=== PATIENT | female | born 1950 | race Caucasian/White ===

== ENCOUNTER 2018-05-09 12:13 | Emergency (ER) | payer MEDICARE ==
[~2018-05-09] VITALS: Ht 152.4 cm; Wt 82.0 kg
--- NOTE | 2018-05-09 12:40 | NUR ---
PT TO ROOM FROM [facility] AT THIS TIME.
--- NOTE | 2018-05-09 12:54 | NUR ---
ON MONITOR HR NOW 100 AFTER BEING 148. P WAVES ARE VISIBLE. EKG BEING REPEATED.
[2018-05-09] MEDS ORDERED: LISINOPRIL PO (12:55)
[2018-05-09] MEDS ORDERED: HYDROCHLOROTHIAZIDE PO (12:55)
[2018-05-09 13:30] LABS: BASOPHILS # (AUTO) 0.02 x10^3/uL (0-0.1); BASOPHILS % (AUTO) 0 % (0-1); EOSINOPHILS # (AUTO) 0.01 x10^3/uL (0-0.4); EOSINOPHILS % (AUTO) 0 % (1-7); LYMPHOCYTES # (AUTO) 0.63 x10^3/uL (1-3.4); LYMPHOCYTES % (AUTO) 10 % (22-44); MD NO; MEAN CORPUSCULAR HEMOGLOBIN 32.7 pg (27.0-34.8); MEAN CORPUSCULAR HGB CONC 34.3 g/dL (32.4-35.8); MEAN CORPUSCULAR VOLUME 95.3 fL (80-100); MEAN PLATELET VOLUME 8.2 fL (7.4-10.4); MONOCYTES # (AUTO) 0.08 x10^3/uL (0.2-0.8); MONOCYTES % (AUTO) 1 % (2-9); NEUTROPHILS # (AUTO) 5.61 x10^3/uL (1.8-6.8); NEUTROPHILS % (AUTO) 88 % (42-75); PLATELET COUNT 194 x10^3/uL (130-400); RED BLOOD COUNT 4.04 x10^6/uL (3.82-5.3); RED CELL DISTRIBUTION WIDTH 13.9 % (9.6-15.2)
[2018-05-09] MEDS ORDERED: SODIUM CHLORIDE FLUSH 10ML SYR IVF ONE (13:30)
[2018-05-09 13:42] LABS: ALANINE AMINOTRANSFERASE 22 U/L (12-78); ALBUMIN 3.6 g/dL (3.4-5.0); ANION GAP 6 mmol/L (5-15); CALCIUM 8.5 mg/dL (8.5-10.1); CHLORIDE 114 mmol/L (98-107)
--- NOTE | 2018-05-09 13:42 | NUR ---
PURE WICK APPLIED PER PT PREFERENCE AFTER DISCUSSING OPTIONS. PT STILL IN SINUS RHYTHM.
[2018-05-09 13:45] LABS: ALKALINE PHOSPHATASE 84 U/L (45-117); BILIRUBIN,TOTAL 0.2 mg/dL (0.2-1.0); CREATININE 0.73 mg/dL (0.55-1.02); TOTAL PROTEIN 6.7 g/dL (6.4-8.2)
--- NOTE | 2018-05-09 14:19 | NUR ---
PT UP TO RESTROOM WITH ONE PERSON ASSIST. PT VOIDED. PT DENIES ANY CP OR SOB. CHART UP FOR MD RECHECK.
[2018-05-09 14:56] VITALS: BP 101/49
--- NOTE | 2018-05-09 14:58 | NUR ---
PT GIVEN WATER. PT TO BE DC'D PER DR. ARTIS. DR. ARTIS AWARE PT DESATS ON RA TO 87% AND TOLD PT TO USE OXYGEN AT HOME THAT SHE USES AT [facility] MORE FRQUENTLY BY MONITORING HER O2 SATS WITH HER OWN PULSE OXIMETER. PT DENIES CP OR SOB.
== END 2018-05-09 15:01 | disposition home or self-care (01) ==
LOC: ED 14:55
DX: I48.0 Paroxysmal atrial fibrillation (principal); I10 Essential (primary) hypertension
CPT/HCPCS: 36415; 71045; 80053; 85025; 93005; 99284

== ENCOUNTER → 2019-04-10 | Outpatient (CLI) | payer MEDICARE ==
[~2019-04-10] MED LIST: ASPI81TA45 PO; CLOB15CR TP; DEXL60CA2 PO; DICL100G19 TP; HYDROCHLOROTHIAZIDE PO; LISI1TAB20 PO; LISINOPRIL PO; SIMV40TA20 PO; TYLENOL ARTHRITIS PO
[2019-04-10 08:55] LABS: BASOPHILS # (AUTO) 0.03 x10^3/uL (0-0.1); BASOPHILS % (AUTO) 1 % (0-1); EOSINOPHILS # (AUTO) 0.14 x10^3/uL (0-0.4); EOSINOPHILS % (AUTO) 2 % (1-7); LYMPHOCYTES # (AUTO) 1.94 x10^3/uL (1-3.4); LYMPHOCYTES % (AUTO) 34 % (22-44); MD NO; MEAN CORPUSCULAR HEMOGLOBIN 32.7 pg (27.0-34.8); MEAN CORPUSCULAR VOLUME 96.1 fL (80-100); MEAN PLATELET VOLUME 7.9 fL (7.4-10.4); MONOCYTES # (AUTO) 0.43 x10^3/uL (0.2-0.8); MONOCYTES % (AUTO) 8 % (2-9); NEUTROPHILS # (AUTO) 3.21 x10^3/uL (1.8-6.8); NEUTROPHILS % (AUTO) 56 % (42-75); PLATELET COUNT 190 x10^3/uL (130-400); RED BLOOD COUNT 4.07 x10^6/uL (3.82-5.3); RED CELL DISTRIBUTION WIDTH 13.6 % (9.6-15.2)
[2019-04-10 09:03] LABS: ALANINE AMINOTRANSFERASE 42 U/L (12-78); ALBUMIN 3.5 g/dL (3.4-5.0); ANION GAP 8 mmol/L (5-15); CALCIUM 8.9 mg/dL (8.5-10.1); CHLORIDE 110 mmol/L (98-107); CREATININE 0.71 mg/dL (0.55-1.02)
[2019-04-10 09:06] LABS: ALKALINE PHOSPHATASE 83 U/L (45-117); BILIRUBIN,TOTAL 0.3 mg/dL (0.2-1.0); TOTAL PROTEIN 6.7 g/dL (6.4-8.2)
== END | disposition home or self-care (01) ==
LOC: STAR 07:41
PROVIDERS: ATTEND Orthopaedic Surgery
DX: Z01.818 Encounter for other preprocedural examination (principal); M17.11 Unilateral primary osteoarthritis, right knee
CPT/HCPCS: 36415; 80053; 85025; 87081; 93005

== ENCOUNTER 2019-04-16 08:46 | Observation (INO) | payer MEDICARE ==
[~2019-04-16] VITALS: Ht 152.4 cm; Wt 85.4 kg
[~2019-04-16 08:46] MED LIST changes: +KETOROLAC 60 MG/2 ML ONE; +ROPIvacaine/PF 0.2%, 20 ML ONE; +SODIUM CHLORIDE 0.9% 100 ML ONE; +TRANEXAMIC ACID 100 MG/ML, 10ML ONE; +VANCOMYCIN 1,000 MG ONE
[2019-04-16] MEDS ORDERED: LACTATED RINGERS 1,000 ML IV SCH (09:06)
[2019-04-16] MEDS ORDERED: GABAPENTIN 300 MG CAPSULE PO ONE (09:30)
[2019-04-16] MEDS ORDERED: ACETAMINOPHEN 500 MG TABLET PO ONE (09:30)
[2019-04-16] MEDS ORDERED: DIAZEPAM 5 MG TABLET PO ONE (09:30)
[2019-04-16] MEDS ORDERED: ONDANSETRON ODT 8 MG PO ONE (09:30)
[2019-04-16] MEDS ORDERED: LIDOCAINE-MPF 1%, 2ML INFIL ONE (09:30)
[2019-04-16] MEDS ORDERED: PROPOFOL 50 ML ONE ×2 (09:55→11:57)
[2019-04-16] MEDS ORDERED: MIDAZOLAM 1 MG/ML, 2ML ONE (09:55)
[2019-04-16] MEDS ORDERED: FENTANYL PF 250 MCG/5ML ONE (09:57)
[2019-04-16] MEDS ORDERED: PROPOFOL 10 MG/ML, 20ML ONE (09:57)
[2019-04-16] MEDS ORDERED: DEXAMETHASONE 4 MG/ML, 1ML ONE (10:00)
[2019-04-16] MEDS ORDERED: ONDANSETRON 2MG/ML, 2ML ONE (10:00)
[2019-04-16] MEDS ORDERED: CEFAZOLIN 1,000 MG ONE (11:26)
[2019-04-16] MEDS ORDERED: PROMETHAZINE 25 MG/ML, 1ML IV PRN (12:00)
[2019-04-16] MEDS ORDERED: MORPHINE SULFATE 4 MG/ML, 1ML IVPush PRN (12:00)
[2019-04-16] MEDS ORDERED: ONDANSETRON 2MG/ML, 2ML IV PRN ×2 (12:00→13:00)
[2019-04-16] MEDS ORDERED: DIAZEPAM 5 MG/ML, 2ML IVPush PRN (12:00)
[2019-04-16] MEDS ORDERED: ONDANSETRON ODT 8 MG PO PRN (12:00)
[2019-04-16] MEDS ORDERED: MIDAZOLAM 1 MG/ML, 2ML IV PRN (12:00)
[2019-04-16] MEDS ORDERED: EPHEDRINE 50 MG/ML, 1ML IVPush PRN (12:00)
[2019-04-16] MEDS ORDERED: LABETALOL 5MG/ML, 20ML IV PRN (12:00)
[2019-04-16] MEDS ORDERED: OXYcodone 5 MG/5 ML ORAL.SOL UDC PO PRN (12:00)
[2019-04-16] MEDS ORDERED: EPHEDRINE 50 MG/ML, 1ML IM PRN (12:00)
[2019-04-16] MEDS ORDERED: EPINEPHRINE 1 MG/ML, 1ML INFIL ONE (12:00)
[2019-04-16] MEDS ORDERED: DIPHENHYDRAMINE 50 MG/ML, 1ML IVPush PRN (12:00)
[2019-04-16] MEDS ORDERED: TRANEXAMIC ACID 1,000 MG in SODIUM CHLORIDE 0.9% 100 ML IVPB ONE (13:00)
[2019-04-16] MEDS ORDERED: ZOLPIDEM 5MG TABLET PO PRN (13:00)
[2019-04-16] MEDS ORDERED: PROMETHAZINE 12.5 MG SUPP PR PRN (13:00)
[2019-04-16] MEDS ORDERED: PSYLLIUM PACKET PO PRN (13:00)
[2019-04-16] MEDS ORDERED: ALUMINUM/MAG/SIMETHICONE 30 ML UDC PO PRN (13:00)
[2019-04-16] MEDS ORDERED: SENNA/DOCUSATE TABLET PO PRN (13:00)
[2019-04-16] MEDS ORDERED: ONDANSETRON 4 MG TABLET PO PRN (13:00)
[2019-04-16] MEDS ORDERED: HYDROmorphone 1 MG/ML, 1ML INJ IVPush PRN (13:00)
[2019-04-16] MEDS ORDERED: MAGNESIUM HYDROXIDE 8%, 30ML UDC PO PRN (13:00)
[2019-04-16] MEDS ORDERED: OXYcodone IR 5MG TABLET PO PRN (13:00)
[2019-04-16] MEDS ORDERED: DIAZEPAM 5 MG TABLET PO PRN (13:00)
[2019-04-16] MEDS ORDERED: BISACODYL 10 MG SUPP PR PRN (13:00)
[2019-04-16] MEDS ORDERED: DEXAMETHASONE 4 MG/ML, 1ML IVPush SCH (13:00)
[2019-04-16] MEDS ORDERED: POLYETHYLENE GLYCOL 17 GM PACKET PO PRN (13:00)
[2019-04-16] MEDS ORDERED: DIPHENHYDRAMINE 25 MG CAPSULE PO PRN (13:00)
[2019-04-16] MEDS ORDERED: OXYcodone 5 MG/5 ML ORAL.SOL UDC ONE (13:22)
[2019-04-16] MEDS ORDERED: FENTANYL PF 100 MCG/2ML ONE (13:22)
[2019-04-16] MEDS: FENTANYL PF 100 MCG/2ML IV PRN ×2 (13:25→13:35)
[2019-04-16] MEDS ORDERED: hydrALAzine 20 MG/ML, 1ML ONE (13:29)
[2019-04-16] MEDS ORDERED: hydrALAzine 20 MG/ML, 1ML IV PRN ×2 (13:30→14:00)
[2019-04-16] MEDS: ACETAMINOPHEN 500 MG TABLET PO SCH ×2 (16:35→18:21)
[2019-04-16] MEDS: CALCIUM/VITAMIN D3 250-125 TABLET PO SCH (18:20)
[2019-04-16] MEDS: FERROUS SULFATE 325 MG TABLET PO SCH (18:21)
[2019-04-16] MEDS: CEFAZOLIN PMX 2GM/50ML 50 ML IVPB SCH (18:21)
[2019-04-16] MEDS: KETOROLAC 30 MG/1 ML IV SCH (18:21)
[2019-04-16] MEDS: D5%-0.45% NACL 1,000 ML IV SCH (18:21)
[2019-04-16] MEDS: ASPIRIN 81 MG TABLET EC PO SCH ×2 (18:21→21:01)
[2019-04-16 18:59] VITALS: BP 102/58
[2019-04-16] MEDS ORDERED: SIMVASTATIN 40 MG TABLET PO SCH (21:00)
[2019-04-16] MEDS: DOCUSATE 100 MG CAPSULE PO SCH (21:01)
[2019-04-17] MEDS: KETOROLAC 30 MG/1 ML IV SCH ×2 (00:05→05:58)
[2019-04-17 00:52] VITALS: BP 101/66
[2019-04-17] MEDS: ACETAMINOPHEN 500 MG TABLET PO SCH ×2 (01:31→08:10)
[2019-04-17] MEDS: D5%-0.45% NACL 1,000 ML IV SCH (02:04)
[2019-04-17] MEDS: CEFAZOLIN PMX 2GM/50ML 50 ML IVPB SCH (02:21)
[2019-04-17 06:28] VITALS: BP 98/62
[2019-04-17] MEDS: CALCIUM/VITAMIN D3 250-125 TABLET PO SCH (08:10)
[2019-04-17] MEDS: FERROUS SULFATE 325 MG TABLET PO SCH (08:10)
[2019-04-17] MEDS: DOCUSATE 100 MG CAPSULE PO SCH (08:10)
[2019-04-17] MEDS: ASPIRIN 81 MG TABLET EC PO SCH (08:10)
[2019-04-17] MEDS ORDERED: ASCORBIC ACID 500 MG TABLET PO SCH (09:00)
[2019-04-17] MEDS ORDERED: MULTIVITAMINS/MINERALS TABLET PO SCH (09:00)
[2019-04-17] MEDS ORDERED: LISINOPRIL 20 MG TABLET PO SCH (09:00)
[2019-04-17] MEDS ORDERED: TEMPLATE NON-FORMULARY MED. (Dexlansoprazole** (Dexilant**) 60 MG) PO SCH (09:00)
[2019-04-17] MEDS ORDERED: HYDROCHLOROTHIAZIDE 25 MG TABLET PO SCH (09:00)
== END 2019-04-17 11:25 | disposition home or self-care (01) ==
LOC: OUT 08:46 → ORIP 12:44 → 4NE 16:15 → DCLOUNGE 04-17 11:15
PROVIDERS: ADMIT Orthopaedic Surgery; ATTEND Orthopaedic Surgery
DX: M17.11 Unilateral primary osteoarthritis, right knee (principal); M21.161 Varus deformity, not elsewhere classified, right knee; K21.9 Gastro-esophageal reflux disease without esophagitis; Z79.899 Other long term (current) drug therapy
CPT/HCPCS: 27447; 36415; 73560; 85014; 85018; 96365; 96366; 96375; 96376; 97110; 97161; 97165; C1713; C1776; G0378; J0171; J0360; J0690; J1100; J1885; J2250; J2405; J2704; J2795; J3010; J3370; J7120; Q0162